=== PATIENT | female | born 1975 | race Caucasian/White ===

== ENCOUNTER 2016-10-04 10:32 | Emergency (ER) | payer MEDICAID ==
[2016-10-04 11:12] VITALS: BP 106/70
--- NOTE | 2016-10-04 11:35 | EDM.PDOC ---
[id number]: BLADDER INFECTION NOT IMPROVING Time Seen by Provider: 10/04/16 11:10 Source of Information: Reports: Patient History Limitations: Reports: No Limitations - History of Present Illness INITIAL COMMENTS - FREE TEXT/NARRATIVE: 41-year-old female who was recently treated with ciprofloxacin for cystitis does not feel like she completely improved, her antibiotics are done and she feels she is worsening. No fevers or chills and no back pain. Onset: Gradual Quality: Reports: Burning Severity: Mild Worsens with: Reports: Other (Urination) Associated Symptoms: Denies: Fever/Chills, Nausea/Vomiting, Shortness of Breath Bladder Pain Score (Numeric/FACES): 3 - Related Data Allergies Allergy/AdvReac Type Severity Reaction Status Date / Time prednisone Allergy Other Verified 10/04/16 10:57 Home Meds: Home Meds Aspirin 325 mg PO DAILY 10/04/16 [History] Past Medical History HEENT History: Reports: Impaired Vision Respiratory History: Reports: Other (See Below) Other Respiratory History: enlarged lymph nodes around lungs Gastrointestinal History: Reports: GERD Genitourinary History: Reports: Other (See Below) Other Genitourinary History: past [employer] History: Reports: Musculoskeletal History: Reports: Other (See Below) Other Musculoskeletal History: osteo necrosis Neurological History: Reports: CVA Psychiatric History: Reports: Depression Endocrine/Metabolic History: Reports: Other (See Below) Other Endocrine/Metabolic History: neurosarcoidosis Hematologic History: Reports: Anemia - Infectious Disease History Infectious Disease History: Reports: Chicken Pox - Past Surgical History Cardiovascular Surgical History: Reports: Other (See Below) Other Cardiovascular Surgeries/Procedures: PFO closure Musculoskeletal Surgical History: Reports: Other (See Below) Other Musculoskeletal Surgeries/Procedures:: bilateral hip surgery Social & Family History - Tobacco Use Smoking Status *Q: Never Smoker Second Hand Smoke Exposure: No - Caffeine Use Caffeine Use: Reports: Tea - Recreational Drug Use Recreational Drug Use: Yes Recreational Drug Type: Reports: Marijuana/Hashish Recreational Drug Use Frequency: Rarely ED ROS GENERAL - Review of Systems Review Of Systems: See Below Constitutional: Denies: Fever, Chills Respiratory: Denies: Shortness of Breath, Hemoptysis GI/Abdominal: Denies: Abdominal Pain : Reports: Dysuria, Urgency Skin: Reports: No Symptoms Psychiatric: Reports: No Symptoms ED EXAM, RENAL/ - Physical Exam Exam: See Below Exam Limited By: No Limitations General Appearance: Alert, No Apparent Distress Respiratory/Chest: No Respiratory Distress Back Exam: No: CVA Tenderness (R), CVA Tenderness (L) Neurological: Alert, Oriented Skin Exam: Warm, Dry Course - Vital Signs Last Recorded V/S: Last Vital Signs Temp 97.2 F 10/04/16 10:32 Pulse 82 10/04/16 10:32 Resp 16 10/04/16 10:32 BP 106/70 10/04/16 10:32 Pulse Ox 97 10/04/16 10:32 - Orders/Labs/Meds Labs: Laboratory Tests 10/04/16 Range/Units 11:32 Urine Color Yellow Urine Appearance Slightly cloudy Urine pH 7.0 (4.5-8.0) Ur Specific [place] 1.005 L (1.008-1.030) Urine Protein Negative (NEGATIVE) mg/dL Urine Glucose (UA) Normal (NEGATIVE) mg/dL Urine Ketones Negative (NEGATIVE) mg/dL Urine Occult Blood Negative (NEGATIVE) Urine Nitrite Negative (NEGATIVE) Urine Bilirubin Negative (NEGATIVE) Urine Urobilinogen Normal (NORMAL) mg/dL Ur Leukocyte Esterase Negative (NEGATIVE) Urine RBC 0-5 (0-5) Urine WBC Not seen (0-5) Ur Epithelial Cells Moderate Amorphous Sediment Rare Urine Bacteria Not seen Urine Mucus Not seen - Re-Assessments/Exams Free Text/Narrative Re-Assessment/Exam: 10/04/16 11:35 A mini cath UA was obtained. 10/04/16 12:13 UA was negative. Patient was given 10 doses of Pyridium to take 3 times a day and then can recheck with her primary care physician when home. No further antibiotics are indicated at this time. Departure - Departure Time of Disposition: 12:28 Disposition: Home, Self-Care 01 Condition: good Clinical Impression: Dysuria - Discharge Information Instructions: Dysuria Referrals: PCP,None [Primary Care Provider] - Forms: ED Department Discharge Care Plan Goals: Use Pyridium 3 times a day for bladder spasm and symptoms, and recheck with your primary physicians when you get home.
== END 2016-10-04 12:28 | disposition home or self-care (01) ==
LOC: JP.ED 10:32
DX: R30.0 Dysuria (principal); K21.9 Gastro-esophageal reflux disease without esophagitis; F32.9 Major depressive disorder, single episode, unspecified; Z88.8 Allergy status to other drugs, medicaments and biological substances; Z79.82 Long term (current) use of aspirin; Z86.73 Personal history of transient ischemic attack (TIA), and cerebral infarction without residual deficits; Z98.890 Other specified postprocedural states; Z86.2 Personal history of diseases of the blood and blood-forming organs and certain disorders involving the immune mechanism
CPT/HCPCS: 81001; 99283; 99284